=== PATIENT | female | born 1985 | race Caucasian/White ===

== ENCOUNTER 2018-10-09 05:52 | Emergency (ER) | payer OTHER ==
[~2018-10-09] VITALS: Ht 162.6 cm; Wt 56.7 kg
--- NOTE | 2018-10-09 05:52 | NUR ---
ED Nurse Note: pt brought in by [facility] from home c/o dizziness and weakness, per EMS report, pt drank some rum last night and woke up feeling dizzy and weak, pt was recently discharged from [facility] in [place] about 10 days ago, dx septic shock from [place]ar[place] butt lift, pt states she had surgical procedure (liposuction and [place]ar[place] butt lift) about one month. pt states she also had a-flutter in hospital but doctor told pt she doesn't have to take medications. BS=54 on field by EMS, pt states she hasn't been eating. Report given to SYBIL Ocasio.
[2018-10-09 06:10] VITALS: BP 107/67
--- NOTE | 2018-10-09 06:14 | Emergency Room Report ---
History of Present Illness General Chief Complaint: Generalized Weakness Source: Patient, EMS (Sterling Esposito MD) Present Illness HPI Patient presents with weakness and rapid heart beat. She's been drinking rum all day yesterday and also claims to have taken Adderall. She also feels weak. She denies any vomiting or diarrhea. There is no dysuria. The patient was recently admitted for several days for sepsis. She had an abscess in her back from fat injections after liposuction. She states that the area where she liposuction have tenderness but nothing like when she had the abscess. She denies recent fever or chills. There is no dysuria or diarrhea. She's not eating well. No SI or HI. No chest pain, nausea, dysuria, abdominal pain, shortness of breath, visual changes, headache. (Sterling Esposito MD) Allergies: Coded Allergies: No Known Allergies (Unverified , 10/09/18) Patient History Past Medical History: see triage record Past Surgical History: other - Liposuction Social History: Reports: alcohol use; Denies: smoking Social History Narrative at home Last Menstrual Period: 09/22/18 Now: No : 0 Para: 0 Reviewed Nursing Documentation: PMH: Agreed; PSxH: Agreed (Sterling Esposito MD) Nursing Documentation-PMH Past Medical History: No History, Except For Hx Cardiac Problems: Yes - A-FLUTTER (Sterling Esposito MD) Review of Systems All Other Systems: negative except mentioned in HPI (Sterling Esposito MD) Physical Exam Vital Signs Date Time Temp Pulse Resp B/P (MAP) Pulse Ox O2 Delivery O2 Flow Rate FiO2 10/09/18 05:47 98.2 146 16 98 Room Air Sp02 EP Interpretation: reviewed, normal General Appearance: no apparent distress, GCS 15, non-toxic Head: normocephalic, atraumatic Eyes: bilateral eye normal inspection, bilateral eye PERRL, bilateral eye EOMI ENT: moist mucus membranes Neck: supple Respiratory: lungs clear, normal breath sounds Cardiovascular #1: tachycardia Cardiovascular #2: 2+ radial (R) Gastrointestinal: normal inspection, normal bowel sounds, non tender, no mass, non-distended, scaphoid Genitourinary: no CVA tenderness Musculoskeletal: back normal, normal range of motion Neurologic: alert, oriented x3, grossly normal Psychiatric: no suicidal/homicidal ideation, anxious Skin: normal inspection, warm/dry, other - surgical wounds well healed without erythema, swelling or fluctuance. Minimal TTP (Sterling Esposito MD) Medical Decision Making Diagnostic Impression: Primary Impression: Tachycardia Additional Impressions: Elevated lactic acid level Substance abuse s/p liposuction and fat injection ER Course Patient presents with tachyarrhythmia and weakness. Differential includes dehydration, drug ingestion, alcohol withdrawal, acute myocardial infarction, pulmonary embolus, sepsis amongst others. She'll be evaluated with EKG, chest x -ray and labs. She'll receive IV hydration and Ativan. EKG with sinus tachycardia and nonspecific ST-T wave changes. CXR clear. Normal WBC. Elevated lactate. Glucose low. D50 ordered. Improved with hydration and ativan. Due to elevated lactic acid will admit telemetry. Signed out to Dr. Sanon. Laboratory Tests Test 10/09/18 06:10 10/09/18 06:25 10/09/18 07:20 White Blood Count 8.6 K/UL (4.8-10.8) Red Blood Count 4.24 M/UL (4.20-5.40) Hemoglobin 14.2 G/DL (12.0-16.0) Hematocrit 42.0 % (37.0-47.0) Mean Corpuscular Volume 99 FL (80-99) Mean Corpuscular Hemoglobin 33.5 PG (27.0-31.0) H Mean Corpuscular Hemoglobin Concent 33.9 G/DL (32.0-36.0) Red Cell Distribution Width 12.7 % (11.6-14.8) Platelet Count 235 K/UL (150-450) Mean Platelet Volume 5.5 FL (6.5-10.1) L Neutrophils (%) (Auto) 74.2 % (45.0-75.0) Lymphocytes (%) (Auto) 20.8 % (20.0-45.0) Monocytes (%) (Auto) 3.4 % (1.0-10.0) Eosinophils (%) (Auto) 1.0 % (0.0-3.0) Basophils (%) (Auto) 0.6 % (0.0-2.0) Sodium Level 138 MMOL/L (136-145) Potassium Level 3.2 MMOL/L (3.5-5.1) L Chloride Level 101 MMOL/L (98-107) Carbon Dioxide Level 18 MMOL/L (21-32) L Anion Gap 19 mmol/L (5-15) H Blood Urea Nitrogen 13 mg/dL (7-18) Creatinine 0.8 MG/DL (0.55-1.30) Estimate Glomerular Filtration Rate > 60 mL/min (>60) Glucose Level 60 MG/DL (74-106) L Calcium Level 8.8 MG/DL (8.5-10.1) Total Bilirubin 0.5 MG/DL (0.2-1.0) Aspartate Amino Transferase (AST) 26 U/L (15-37) Alanine Aminotransferase (ALT) 27 U/L (12-78) Alkaline Phosphatase 70 U/L (46-116) Troponin I 0.000 ng/mL (0.000-0.056) Total Protein 7.6 G/DL (6.4-8.2) Albumin 3.9 G/DL (3.4-5.0) Globulin 3.7 g/dL Albumin/Globulin Ratio 1.1 (1.0-2.7) Salicylates Level < 0.2 ug/mL (2.8-20) L Acetaminophen Level < 2 MCG/ML (10-30) L Serum Alcohol 106 mg/dL Urine Color Pale yellow Urine Appearance Slightly cloudy Urine pH 5 (4.5-8.0) Urine Specific [place] 1.025 (1.005-1.035) Urine Protein 2+ (NEGATIVE) H Urine Glucose (UA) Negative (NEGATIVE) Urine Ketones 4+ (NEGATIVE) H Urine Blood Negative (NEGATIVE) Urine Nitrite Negative (NEGATIVE) Urine Bilirubin Negative (NEGATIVE) Urine Urobilinogen Normal MG/DL (0.0-1.0) Urine Leukocyte Esterase 1+ (NEGATIVE) H Urine RBC 0-2 /HPF (0 - 2) Urine WBC 2-4 /HPF (0 - 2) Urine Squamous Epithelial Cells Moderate /LPF (NONE/OCC) H Urine Bacteria Few /HPF (NONE) Urine Mucus Few /LPF (NONE/OCC) H Urine HCG, Qualitative Negative (NEGATIVE) Lactic Acid Level 5.70 mmol/L (0.4-2.0) H 4.00 mmol/L (0.66-2.22) H Urine Opiates Screen Negative (NEGATIVE) Urine Barbiturates Screen Negative (NEGATIVE) Phencyclidine (PCP) Screen Negative (NEGATIVE) Urine Amphetamines Screen Positive (NEGATIVE) H Urine Benzodiazepines Screen Negative (NEGATIVE) Urine Cocaine Screen Negative (NEGATIVE) Urine Marijuana (THC) Screen Negative (NEGATIVE) (Sterling Esposito MD) ER Course Please note that the patient was requested for admission IV hydration and antibiotics initiated Secondary to insurance purposes request was made for transfer I spoke to Dr. Harvey at [facility] who agrees to accept the patient to their facility for continued if care Patient significantly improved with improved heart rate remains afebrile and stable for transfer hemodynamically Labs Test 10/09/18 06:10 10/09/18 06:25 10/09/18 07:20 White Blood Count 8.6 K/UL (4.8-10.8) Red Blood Count 4.24 M/UL (4.20-5.40) Hemoglobin 14.2 G/DL (12.0-16.0) Hematocrit 42.0 % (37.0-47.0) Mean Corpuscular Volume 99 FL (80-99) Mean Corpuscular Hemoglobin 33.5 PG (27.0-31.0) Mean Corpuscular Hemoglobin Concent 33.9 G/DL (32.0-36.0) Red Cell Distribution Width 12.7 % (11.6-14.8) Platelet Count 235 K/UL (150-450) Mean Platelet Volume 5.5 FL (6.5-10.1) Neutrophils (%) (Auto) 74.2 % (45.0-75.0) Lymphocytes (%) (Auto) 20.8 % (20.0-45.0) Monocytes (%) (Auto) 3.4 % (1.0-10.0) Eosinophils (%) (Auto) 1.0 % (0.0-3.0) Basophils (%) (Auto) 0.6 % (0.0-2.0) Sodium Level 138 MMOL/L (136-145) Potassium Level 3.2 MMOL/L (3.5-5.1) Chloride Level 101 MMOL/L (98-107) Carbon Dioxide Level 18 MMOL/L (21-32) Anion Gap 19 mmol/L (5-15) Blood Urea Nitrogen 13 mg/dL (7-18) Creatinine 0.8 MG/DL (0.55-1.30) Estimat Glomerular Filtration Rate > 60 mL/min (>60) Glucose Level 60 MG/DL (74-106) Calcium Level 8.8 MG/DL (8.5-10.1) Total Bilirubin 0.5 MG/DL (0.2-1.0) Aspartate Amino Transf (AST/SGOT) 26 U/L (15-37) Alanine Aminotransferase (ALT/SGPT) 27 U/L (12-78) Alkaline Phosphatase 70 U/L (46-116) Troponin I 0.000 ng/mL (0.000-0.056) Total Protein 7.6 G/DL (6.4-8.2) Albumin 3.9 G/DL (3.4-5.0) Globulin 3.7 g/dL Albumin/Globulin Ratio 1.1 (1.0-2.7) Salicylates Level < 0.2 ug/mL (2.8-20) Acetaminophen Level < 2 MCG/ML (10-30) Serum Alcohol 106 mg/dL Urine Color Pale yellow Urine Appearance Slightly cloudy Urine pH 5 (4.5-8.0) Urine Specific [place] 1.025 (1.005-1.035) Urine Protein 2+ (NEGATIVE) Urine Glucose (UA) Negative (NEGATIVE) Urine Ketones 4+ (NEGATIVE) Urine Blood Negative (NEGATIVE) Urine Nitrite Negative (NEGATIVE) Urine Bilirubin Negative (NEGATIVE) Urine Urobilinogen Normal MG/DL (0.0-1.0) Urine Leukocyte Esterase 1+ (NEGATIVE) Urine RBC 0-2 /HPF (0 - 2) Urine WBC 2-4 /HPF (0 - 2) Urine Squamous Epithelial Cells Moderate /LPF (NONE/OCC) Urine Bacteria Few /HPF (NONE) Urine Mucus Few /LPF (NONE/OCC) Urine HCG, Qualitative Negative (NEGATIVE) Lactic Acid Level 5.70 mmol/L (0.4-2.0) 4.00 mmol/L (0.66-2.22) Urine Opiates Screen Negative (NEGATIVE) Urine Barbiturates Screen Negative (NEGATIVE) Phencyclidine (PCP) Screen Negative (NEGATIVE) Urine Amphetamines Screen Positive (NEGATIVE) Urine Benzodiazepines Screen Negative (NEGATIVE) Urine Cocaine Screen Negative (NEGATIVE) Urine Marijuana (THC) Screen Negative (NEGATIVE) (Margaret Sanon DO) EKG Diagnostic Results Rate: tachycardiac Rhythm: NSR ST Segments: no acute changes (Sterling Esposito MD) Rhythm Strip Diag. Results EP Interpretation: yes Rhythm: no PVC's, no ectopy, other - Sinus tachycardia (Sterling Esposito MD) EP Interpretation: yes Rate: 90 Rhythm: NSR, no PVC's, no ectopy (Margaret Sanon DO) Chest X-Ray Diagnostic Results Chest X-Ray Diagnostic Results : Chest X-Ray Ordered: Yes # of Views/Limited/Complete: 1 View Indication: Other Interpretation: no consolidation, no effusion, no pneumothorax Impression: No acute disease Electronically Signed by: Electronically signed by Sterling Esposito MD (Sterling Esposito MD) Last Vital Signs Date Time Temp Pulse Resp B/P (MAP) Pulse Ox O2 Delivery O2 Flow Rate FiO2 10/09/18 09:29 98.0 100 25 105/78 98 Room Air Status: improved (Sterling Esposito MD) Status: improved (Margaret Sanon DO) Disposition: XFER SHT-TRM HOSP Condition: Serious Sterling Esposito MD October 09, 2018 06:14 Margaret Sanon DO October 09, 2018 09:17
[2018-10-09] MEDS ORDERED: LORazepam Inj 2mg/ml 1ml IV ONE (06:15)
[2018-10-09 06:23] LABS: BASOPHILS % (AUTO) 0.6 % (0.0-2.0); HEMOGLOBIN 14.2 G/DL (12.0-16.0); LYMPHOCYTES % (AUTO) 20.8 % (20.0-45.0); MEAN CORPUSCULAR VOLUME 99 FL (80-99); MONOCYTES % (AUTO) 3.4 % (1.0-10.0); NEUTROPHILS % (AUTO) 74.2 % (45.0-75.0); PLATELET COUNT 235 K/UL (150-450); RED BLOOD COUNT 4.24 M/UL (4.20-5.40); RED CELL DISTRIBUTION WIDTH 12.7 % (11.6-14.8); WHITE BLOOD COUNT 8.6 K/UL (4.8-10.8)
--- NOTE | 2018-10-09 06:30 | NUR ---
ER Nurse Note: Report recieved from SYBIL Avila. BS rechecked after dextrose; BS 230. Pt HR decreased to 99 after meds administered. Pt calm. All safety measures met; will continue to monitor.
[2018-10-09 06:36] VITALS: BP 108/68
[2018-10-09 06:42] LABS: ANION GAP 19 mmol/L (5-15); BLOOD UREA NITROGEN 13 mg/dL (7-18); CALCIUM 8.8 MG/DL (8.5-10.1); CARBON DIOXIDE 18 MMOL/L (21-32); CHLORIDE 101 MMOL/L (98-107); CREATININE 0.8 MG/DL (0.55-1.30); POTASSIUM 3.2 MMOL/L (3.5-5.1); SODIUM 138 MMOL/L (136-145)
[2018-10-09 06:47] LABS: APPEARANCE,URINE SLIGHTLY CLOUDY; BILIRUBIN, URINE NEGATIVE (NEGATIVE); COLOR,URINE PALE YELLOW; GLUCOSE, URINE (UA) NEGATIVE (NEGATIVE); KETONES,URINE 4+ (NEGATIVE); LEUKOCYTE ESTERASE ,URINE 1+ (NEGATIVE); NITRITE,URINE NEGATIVE (NEGATIVE); PH,URINE 5 (4.5-8.0); PROTEIN,URINE 2+ (NEGATIVE); UROBILINOGEN,URINE NORMAL MG/DL (0.0-1.0)
[2018-10-09 06:48] LABS: ALANINE AMINOTRANSFERASE 27 U/L (12-78); ASPARTATE AMINO TRANSFERASE 26 U/L (15-37); BILIRUBIN,TOTAL 0.5 MG/DL (0.2-1.0)
[2018-10-09 06:49] LABS: ALBUMIN 3.9 G/DL (3.4-5.0); ALBUMIN/GLOBULIN RATIO 1.1 (1.0-2.7); ALKALINE PHOSPHATASE 70 U/L (46-116)
--- NOTE | 2018-10-09 07:05 | NUR ---
ER Nurse Note: Report given to SYBIL Graff for continuity of care. Pt stable, all orders completed per ERMD orders.
--- NOTE | 2018-10-09 07:20 | NUR ---
ED Nurse Note: Lactic acid reflex sent to lab. Pt asleep in bed comfortably. No acute distress noted. Notified pt of possible tx. VSS. No acute distress noted. Will continue to monitor.
--- NOTE | 2018-10-09 07:32 | Diagnostic Imaging Report ---
EXAM: XR Chest, 1 View CLINICAL HISTORY: CP TECHNIQUE: Frontal view of the chest. COMPARISON: No relevant prior studies available. FINDINGS: Lungs: Unremarkable. No consolidation. Pleural space: Unremarkable. No pneumothorax. Heart: Unremarkable. No cardiomegaly. Mediastinum: Unremarkable. Bones/joints: Unremarkable. Tubes, lines and devices: Overlying chest leads obscure portion of the chest. IMPRESSION: No acute pulmonary disease.
[2018-10-09] MEDS ORDERED: Piperacillin/Tazobactam 3.375 GM in NS 110 ML IVPB ONE (08:30)
[2018-10-09 08:33] VITALS: BP 100/81
--- NOTE | 2018-10-09 08:46 | NUR ---
ED Nurse Note: Gave telephone report to SYBIL Cao from [facility]. Waiting for transport to arrive.
--- NOTE | 2018-10-09 09:25 | NUR ---
ED Nurse Note: Gave report to [facility].
--- NOTE | 2018-10-09 09:28 | NUR ---
ED Nurse Note: Pt left ER via [facility] for [facility]. No acute distress noted. Left ER w/ all belongings.
[2018-10-09 09:29] VITALS: BP 105/78
== END 2018-10-09 09:31 | disposition short-term general hospital (02) ==
LOC: EDBD 05:52 → EMR 06:20 → EDBEDREQ 09:17 → EMR 09:31
DX: R00.0 Tachycardia, unspecified (principal); R74.0 Nonspecific elevation of levels of transaminase and lactic acid dehydrogenase [LDH]; F19.10 Other psychoactive substance abuse, uncomplicated
CPT/HCPCS: 36415; 71045; 80053; 80307; 80329; 81003; 81025; 82962; 83605; 84484; 85025; 87040; 93005; 96361; 96365; 96375; 99285; J2543